=== PATIENT | male | born 1975 | race Caucasian/White ===

== ENCOUNTER 2020-04-09 19:22 | Emergency (ER) | payer OTHER ==
[~2020-04-09] VITALS: Ht 185.4 cm; Wt 95.5 kg
[~2020-04-09 19:22] MED LIST changes: -PHENERGAN 25 TA25 MG PO
[2020-04-09 19:40] VITALS: TEMP 97.2
[2020-04-09 20:59] LABS: LIPASE 142 U/L (23-300)
[2020-04-09 21:00] LABS: C-REACTIVE PROTEIN < 0.5 mg/dL (0.0-0.9)
[2020-04-09] MEDS ORDERED: PHENERGAN 25 TA25 MG PO (21:45)
[2020-04-09 22:00] VITALS: BP 139/70; PULSE 80
== END 2020-04-09 22:00 | disposition home or self-care (01) ==
LOC: COL.ER 19:22
PROVIDERS: Emergency Medicine
DX: R10.10 Upper abdominal pain, unspecified (principal); R11.0 Nausea; Z79.82 Long term (current) use of aspirin
CPT/HCPCS: C9113; J0780; J1170; J7030

== ENCOUNTER → 2020-04-09 | Emergency (ER) | payer OTHER ==
[~2020-04-09] VITALS: Ht 185.4 cm; Wt 95.5 kg
[~2020-04-09] MED LIST: AMBIEN5 MG PO; ASPIRIN 32325 MG/TAB PO; ATARAX50 MG PO; DESYREL 50MG50 MG PO; EUCERIN1 CRE; FIORICET 325 MG1 TA1 PO; FLEXERIL 1010 MG/TAB PO; FLONASE NASAL S16 GM NS; GLYCERIN S1 SUPP.REC RC; HEMORRHOIDAL HYGI50% TP; IMITREX 25MG TA25 MG; INDERAL 20MG20 MG PO; ISONIAZID100 MG PO; LORTAB 5/500 501 TAB PO; MINIPRESS1 MG PO; MINIPRESS2 MG PO; MIRALAX PA17 GM/Dose PO; MOBIC15 MG PO; NORCO 325 MG-51 TAB PO; PERCOCET 325 MG1 TA2 PO; PERI-COLACE 501 TAB PO; PHENERGAN 25 TA25 MG PO; PROTONIX 40MG T40 MG PO; REMERON30 MG PO; ROXICODONE 55 MG/TAB PO; SERTRALINE; VIAGRA100 M1 PO; VITAMIN B650 MG PO; ZOFRAN ODT4 MG PO; ZYRTEC 10MG10 MG PO; lidocaine 5% oint
[2020-04-09 05:18] VITALS: BP 132/89; PULSE 79; TEMP 97.2
[2020-04-09 05:34] LABS: BASO % 0.2 % (0.0-2.0); EOS # 0.1 (0.0-0.7); EOS % 1.8 % (0-4.0); GRAN # 1.8 (1.4-6.5); GRAN % 39.6 % (42.2-75.2); LYMPH # 2.3 (1.2-3.4); LYMPH % 50.3 % (20.0-51.0); MEAN CELL VOLUME 94 fl (80.0-100.0); MEAN CORPUSCULAR HEMOGLOBIN 33 pg (27.0-31.0); MEAN CORPUSCULAR HGB CONC 36 g/dl (33.0-37.0); MEAN PLATELET VOLUME 10.1 fl (7.4-10.4); MONO # 0.4 (0.1-0.6); MONO % 7.9 % (1.7-9.3); PLATELET COUNT 215 K/mm3 (130-400); REDCELL DISTRIBUTION WIDTH-CV 12.1 % (11.5-14.5)
[2020-04-09 05:48] LABS: ALANINE AMINOTRANSFERASE 33 U/L (4-49); ALBUMIN 5.1 gm/dL (3.5-5.0); ALKALINE PHOSPHATASE 82 U/L (50-136); ANION GAP 12 mmol/L (7-16); AST,SGOT 38 U/L (15-37); BILIRUBIN,TOTAL 0.6 mg/dL (0.0-1.0); BLOOD UREA NITROGEN 14 mg/dL (9-20); CALCIUM 9.3 mg/dL (8.4-10.2); CARBON DIOXIDE 26 mmol/L (22-30); CHLORIDE 103 mmol/L (98-107); CREATININE, serum 1.15 (0.66-1.25); GLUCOSE 113 mg/dL (74-106); LIPASE 334 U/L (23-300); POTASSIUM 3.9 mmol/L (3.4-5.0); SODIUM 141 mmol/L (137-145); TOTAL PROTEIN 8.6 gm/dL (6.4-8.2)
[2020-04-09 05:50] LABS: C-REACTIVE PROTEIN < 0.5 mg/dL (0.0-0.9)
[2020-04-09 06:34] LABS: COLLECTION METHOD CLEAN CATCH
[2020-04-09 06:39] LABS: MUCOUS Present /lpf; PH 5 (5-8); SQUAMOUS EPITHELIAL None Seen /hpf; URINE APPEARANCE Clear; URINE BACTERIA None Seen /hpf; URINE BILIRUBIN Negative (NEGATIVE); URINE BLOOD Negative (NEGATIVE); URINE COLOR Yellow; URINE GLUCOSE Negative (NEGATIVE); URINE KETONE Negative (NEGATIVE); URINE LEUKOCYTE ESTERASE Negative (NEGATIVE); URINE NITRATE Negative (NEGATIVE); URINE PROTEIN(semi-quant) Negative (NEGATIVE); URINE RBC None Seen /hpf; URINE UROBILINOGEN Negative (NEGATIVE)
== END ==
LOC: COL.ER 05:07
PROVIDERS: Emergency Medicine
DX: R10.13 Epigastric pain (principal); Z87.891 Personal history of nicotine dependence; Z79.82 Long term (current) use of aspirin; Z79.83 Long term (current) use of bisphosphonates
CPT/HCPCS: C9113; J2405; J7030; Q9967

== ENCOUNTER 2020-05-07 11:32 | Emergency (ER) | payer OTHER ==
[~2020-05-07] VITALS: Ht 185.4 cm; Wt 91.8 kg
[~2020-05-07 11:32] MED LIST changes: +PHENERGAN 25 TA25 MG PO
[2020-05-07 11:36] VITALS: TEMP 98.5
[2020-05-07 12:00] VITALS: BP 149/87; PULSE 91
== END 2020-05-07 12:00 | disposition home or self-care (01) ==
LOC: COL.ER 11:32
DX: S30.21XA Contusion of penis, initial encounter (principal); Z87.891 Personal history of nicotine dependence; Z79.82 Long term (current) use of aspirin; X58.XXXA Exposure to other specified factors, initial encounter